=== PATIENT | male | born 1990 | race Two or more races ===

== ENCOUNTER 2023-08-17 15:43 | Emergency (ER) | payer OTHER ==
[~2023-08-17] VITALS: Ht 180.3 cm; Wt 90.7 kg
[2023-08-17] MEDS ORDERED: KETOROLAC TROMETHAMINE 15 MG VIAL IM STA (17:28)
[2023-08-17] MEDS ORDERED: ORPHENADRINE CITRATE 30 MG/ML AMPUL IM STA (17:29)
[2023-08-17] MEDS ORDERED: NASAL MIST126 ML (17:35)
[2023-08-17] MEDS ORDERED: CELEBREX200MG PO (19:54)
[2023-08-17] MEDS ORDERED: MEDROLPACK PO (19:54)
[2023-08-17] MEDS ORDERED: METAXALONE800 MG PO (19:54)
== END 2023-08-17 20:49 | disposition home or self-care (01) ==
LOC: ER 15:44
DX: S13.4XXA Sprain of ligaments of cervical spine, initial encounter (principal); V49.88XA Car occupant (driver) (passenger) injured in other specified transport accidents, initial encounter; V87.7XXA Person injured in collision between other specified motor vehicles (traffic), initial encounter; Y93.89 Activity, other specified; Y92.89 Other specified places as the place of occurrence of the external cause; Y99.8 Other external cause status; Z91.041 Radiographic dye allergy status